=== PATIENT | male | born 1970 | race Caucasian/White ===

== ENCOUNTER 2024-05-20 10:24 | Inpatient (IN) | payer OTHER ==
[2024-05-20 11:03] VITALS: BMI 29.0
[2024-05-20] MEDS ORDERED: DICYCLOMINE HCL 10 MG CAPSULE PO PRN (13:34)
[2024-05-20] MEDS ORDERED: BISMUTH SUBSALICYLATE 262 MG/15 ML BTL PO PRN (13:34)
[2024-05-20] MEDS ORDERED: IBUPROFEN 600 MG TABLET (FP) PO PRN (13:34)
[2024-05-20] MEDS ORDERED: MAG HYDROX/AL HYDROX/SIMETH 30 ML UNIT-DOSE CUP PO PRN (13:34)
[2024-05-20] MEDS ORDERED: MAGNESIUM HYDROX 2400MG/30ML ORAL SUSPENSION 30 ML CUP PO PRN (13:34)
[2024-05-20] MEDS ORDERED: NALOXONE (NARCAN) HCL 4 MG/0.1 ML SPRAY NS PRN (13:34)
[2024-05-20] MEDS ORDERED: BENZONATATE 200 MG CAPSULE PO PRN (13:34)
[2024-05-20] MEDS ORDERED: ACETAMINOPHEN 325 MG TABLET (FP) PO PRN (13:34)
[2024-05-20] MEDS ORDERED: BENZOCAINE/MENTHOL (CHLORASEPTIC ) LOZENGE MM PRN (13:34)
[2024-05-20] MEDS ORDERED: guaiFENesin 600 MG TABLET.ER (FP) PO PRN (13:34)
[2024-05-20] MEDS ORDERED: NALOXONE HCL 0.4 MG/ML VIAL IM PRN (13:34)
[2024-05-20] MEDS ORDERED: POLYETHYLENE GLYCOL (HEALTHYLAX) 3350 17 GM PACKET PO PRN (13:34)
[2024-05-20] MEDS ORDERED: LOPERAMIDE HCL 2 MG CAPSULE PO PRN (13:34)
[2024-05-20] MEDS ORDERED: PRENATAL VITAMINS W/ FOLIC ACID TABLET (FP) PO ONE (15:01)
[2024-05-20] MEDS: PRENATAL VITAMINS W/ FOLIC ACID TABLET (FP) PO SCH (15:03)
[2024-05-20] MEDS: chlordiazePOXIDE HCL 25 MG CAPSULE PO PRN (15:04)
[2024-05-20] MEDS: chlordiazePOXIDE HCL 25 MG CAPSULE PO SCH ×2 (15:12→17:26)
[2024-05-20] MEDS: ONDANSETRON *ODT* 4 MG TABLET SL PRN (16:02)
[2024-05-20] MEDS: hydrOXYzine PAMOATE 25 MG CAPSULE (FP) PO PRN (18:37)
[2024-05-20] MEDS: IBUPROFEN 400 MG TABLET (FP) PO PRN (20:05)
[2024-05-20] MEDS: METHOCARBAMOL 500 MG TABLET PO PRN (20:05)
[2024-05-20] MEDS: NICOTINE POLACRILEX 2 MG GUM BUC PRN (20:07)
[2024-05-20] MEDS: MELATONIN 5 MG TABLETS PO SCH (22:57)
[2024-05-20] MEDS: THIAMINE 100 MG TABLET PO SCH (22:57)
[2024-05-21 06:36] VITALS: BP 135/87; PULSE 73; RESP 16; TEMP 96.9
[2024-05-21 12:15] LABS: HEMATOCRIT 38.6 % (35.4-49); HEMOGLOBIN 13.2 GM/dL (11.7-16.9); MCH 31.7 pg (25.7-33.7); MCHC 34.2 g/dl (32.0-35.9); MEAN CELL VOLUME 92.8 fl (80-96); MEAN PLT VOLUME 8.6 fl (7.5-11.1); PLATELET COUNT 350 10^3/uL (134-434); RBC 4.16 M/mm3 (4.00-5.60); RDW 16.2 % (11.9-15.9); WHITE BLOOD COUNT 7.1 K/mm3 (4.0-10.0)
[2024-05-21 12:16] LABS: POTASSIUM 3.8 mmol/L (3.5-5.1)
[2024-05-21 12:19] LABS: CALCIUM 9.2 mg/dL (8.5-10.1)
[2024-05-21 12:21] LABS: ALBUMIN 3.4 g/dl (3.4-5.0); BLOOD UREA NITROGEN 13.7 mg/dL (7-18)
[2024-05-21 12:24] LABS: CREATININE 0.9 mg/dL (0.55-1.3)
[2024-05-21 12:25] LABS: BILIRUBIN,TOTAL 0.6 mg/dL (0.2-1); TOT PROT 7.3 g/dl (6.4-8.2)
[2024-05-21] MEDS: NALTREXONE HCL 50 MG TABLET PO SCH (12:25)
[2024-05-22] MEDS ORDERED: chlordiazePOXIDE HCL 25 MG CAPSULE PO SCH (05:00)
[2024-05-23] MEDS ORDERED: chlordiazePOXIDE HCL 10 MG CAPSULE PO PRN
[2024-05-23] MEDS ORDERED: chlordiazePOXIDE HCL 10 MG CAPSULE PO SCH (05:00)
[2024-05-24] MEDS ORDERED: chlordiazePOXIDE HCL 10 MG CAPSULE PO SCH (05:00)
[2024-05-25] MEDS ORDERED: chlordiazePOXIDE HCL 10 MG CAPSULE PO ONE (05:00)
== END 2024-05-21 14:29 | disposition home or self-care (01) | DRG 775 ==
LOC: YASAS 10:24 → Y3N 14:14
PROVIDERS: ADMIT Allergy & Immunology; ATTEND Surgery
PROC: HZ2ZZZZ Detoxification Services for Substance Abuse Treatment (ICD-10-PCS; principal; 2024-05-20)
DX: F10.230 Alcohol dependence with withdrawal, uncomplicated (principal); F17.210 Nicotine dependence, cigarettes, uncomplicated; F31.9 Bipolar disorder, unspecified; F90.9 Attention-deficit hyperactivity disorder, unspecified type; E03.9 Hypothyroidism, unspecified; Z59.02 Unsheltered homelessness
CPT/HCPCS: 36415; 80053; 80305; 80307; 85027; 86780; Q0162

== ENCOUNTER 2024-06-24 17:46 | Inpatient (IN) | payer OTHER ==
[2024-06-24 19:09] VITALS: BMI 27.6
[2024-06-24] MEDS ORDERED: chlordiazePOXIDE HCL 25 MG CAPSULE PO PRN (19:58)
[2024-06-24] MEDS ORDERED: LOPERAMIDE HCL 2 MG CAPSULE PO PRN (20:04)
[2024-06-24] MEDS ORDERED: POLYETHYLENE GLYCOL (HEALTHYLAX) 3350 17 GM PACKET PO PRN (20:04)
[2024-06-24] MEDS ORDERED: ACETAMINOPHEN 325 MG TABLET (FP) PO PRN (20:04)
[2024-06-24] MEDS ORDERED: guaiFENesin 600 MG TABLET.ER (FP) PO PRN (20:04)
[2024-06-24] MEDS ORDERED: MAG HYDROX/AL HYDROX/SIMETH 30 ML UNIT-DOSE CUP PO PRN (20:04)
[2024-06-24] MEDS ORDERED: NICOTINE POLACRILEX 2 MG LOZENGE BC PRN (20:04)
[2024-06-24] MEDS ORDERED: IBUPROFEN 400 MG TABLET (FP) PO PRN (20:04)
[2024-06-24] MEDS ORDERED: MAGNESIUM HYDROX 2400MG/30ML ORAL SUSPENSION 30 ML CUP PO PRN (20:04)
[2024-06-24] MEDS ORDERED: IBUPROFEN 600 MG TABLET (FP) PO PRN (20:04)
[2024-06-24] MEDS ORDERED: P-EPHED 60MG/TRIPROLIDI 2.5MG TABLET PO PRN (20:04)
[2024-06-24] MEDS ORDERED: BENZOCAINE/MENTHOL (CHLORASEPTIC ) LOZENGE MM PRN (20:04)
[2024-06-24] MEDS ORDERED: BISMUTH SUBSALICYLATE 524 MG/30 ML PO PRN (20:04)
[2024-06-24] MEDS ORDERED: DICYCLOMINE HCL 10 MG CAPSULE PO PRN (20:04)
[2024-06-24] MEDS ORDERED: BENZONATATE 200 MG CAPSULE PO PRN (20:04)
[2024-06-24] MEDS: chlordiazePOXIDE HCL 25 MG CAPSULE PO SCH (22:12)
[2024-06-24] MEDS: MELATONIN 5 MG TABLETS PO SCH (22:13)
[2024-06-24] MEDS: hydrOXYzine PAMOATE 25 MG CAPSULE (FP) PO PRN (22:13)
[2024-06-24] MEDS: THIAMINE 100 MG TABLET PO SCH (22:13)
[2024-06-24] MEDS: METHOCARBAMOL 500 MG TABLET PO PRN (22:13)
[2024-06-25] MEDS: PRENATAL VITAMINS W/ FOLIC ACID TABLET (FP) PO SCH (09:41)
[2024-06-25] MEDS: NICOTINE POLACRILEX 2 MG GUM BUC PRN (10:44)
[2024-06-25 11:11] LABS: CHLORIDE 105 mmol/L (98-107); SODIUM 139 mmol/L (136-145)
[2024-06-25 11:18] LABS: CREATININE 0.9 mg/dL (0.55-1.3); SGPT/ALT 48 U/L (13-61)
[2024-06-25 11:19] LABS: GLUCOSE,RANDOM 112 mg/dL (74-106); HEMATOCRIT 37.3 % (35.4-49); HEMOGLOBIN 12.6 GM/dL (11.7-16.9); MCH 32.9 pg (25.7-33.7); MCHC 33.8 g/dl (32.0-35.9); MEAN CELL VOLUME 97.3 fl (80-96); MEAN PLT VOLUME 8.8 fl (7.5-11.1); PLATELET COUNT 173 10^3/uL (134-434); RBC 3.84 M/mm3 (4.00-5.60); RDW 15.6 % (11.9-15.9); WHITE BLOOD COUNT 4.2 K/mm3 (4.0-10.0)
[2024-06-25 11:21] LABS: ALK PHOS 200 U/L (45-117); ANION GAP 6 mmol/L (4-13); BILIRUBIN,TOTAL 0.8 mg/dL (0.2-1); BLOOD UREA NITROGEN 10.6 mg/dL (7-18); CALCIUM 9.2 mg/dL (8.5-10.1); CO2 28 mmol/L (21-32); SGOT/AST 63 U/L (15-37); TOT PROT 6.5 g/dl (6.4-8.2)
[2024-06-25] MEDS: ONDANSETRON *ODT* 4 MG TABLET SL PRN (17:25)
[2024-06-26] MEDS: chlordiazePOXIDE HCL 25 MG CAPSULE PO SCH (05:55)
[2024-06-26 11:00] VITALS: BP 119/76; PULSE 66; RESP 18; TEMP 97.7
[2024-06-26 11:35] LABS: POTASSIUM 4.7 mmol/L (3.5-5.1)
[2024-06-26 11:46] LABS: BLOOD UREA NITROGEN 11.8 mg/dL (7-18); CALCIUM 9.2 mg/dL (8.5-10.1)
[2024-06-26 11:48] LABS: CREATININE 0.8 mg/dL (0.55-1.3)
[2024-06-26 11:59] LABS: BASO % 0.7 % (0-2.0); EOS % 3.9 % (0-4.5); HEMATOCRIT 39.8 % (35.4-49); MCH 32.4 pg (25.7-33.7); MCHC 32.6 g/dl (32.0-35.9); MEAN CELL VOLUME 99.3 fl (80-96); MEAN PLT VOLUME 9.3 fl (7.5-11.1); MONO % 12.1 % (3.8-10.2); NEUT % 58.3 % (42.8-82.8); PLATELET COUNT 187 10^3/uL (134-434); RBC 4.01 M/mm3 (4.00-5.60); RDW 15.5 % (11.9-15.9); WHITE BLOOD COUNT 5.8 K/mm3 (4.0-10.0)
[2024-06-27] MEDS ORDERED: chlordiazePOXIDE HCL 10 MG CAPSULE PO PRN
[2024-06-27] MEDS ORDERED: chlordiazePOXIDE HCL 10 MG CAPSULE PO SCH (05:00)
[2024-06-28] MEDS ORDERED: chlordiazePOXIDE HCL 10 MG CAPSULE PO SCH (05:00)
[2024-06-29] MEDS ORDERED: chlordiazePOXIDE HCL 10 MG CAPSULE PO ONE (05:00)
== END 2024-06-26 12:55 | disposition left against medical advice (07) | DRG 770 ==
LOC: YASAS 17:46 → Y3N 20:21
PROVIDERS: ADMIT Allergy & Immunology; ATTEND Surgery
PROC: HZ2ZZZZ Detoxification Services for Substance Abuse Treatment (ICD-10-PCS; principal; 2024-06-24)
DX: F10.230 Alcohol dependence with withdrawal, uncomplicated (principal); F17.210 Nicotine dependence, cigarettes, uncomplicated; F90.9 Attention-deficit hyperactivity disorder, unspecified type; F31.9 Bipolar disorder, unspecified; M25.572 Pain in left ankle and joints of left foot; G89.29 Other chronic pain
CPT/HCPCS: 36415; 80048; 80053; 80305; 80307; 85025; 85027; Q0162